=== PATIENT | female | born 1960 | race Caucasian/White ===

== ENCOUNTER 2020-04-24 16:37 | Emergency (ER) | payer MEDICAID, SELFPAY ==
[2020-04-24 17:15] VITALS: BP 140/82; PULSE 68; RESP 16; TEMP 35.9; O2SAT 98; BMI 33.6
--- NOTE | 2020-04-24 17:37 | ED.DCSUM_ITS ---
History of Present Illness Chief Complaint: Lower Extremity Injury Informant: Patient Onset: Today Context: Sudden Onset Timing: Continuous Current Severity: Moderate Maximum Severity: Severe Narrative: Patient is a 59-year-old female is otherwise healthy the presents to the emergency department with lower extremity injury. She states she was walking upstairs and slipped. She struck her anterior lorenzo against a concrete. She states that she had a large area of swelling. She was unable to bear weight because of the pain. She is not on anticoagulants. She denies any pain in the foot. Since it has happened, she states the swelling has gotten better but she is still markedly tender. The patient is otherwise been in her normal state of health. Prior similar symptoms: No Recent Illness/Hospitalization: No Past Medical History - Allergies and Home Meds Allergies/Adverse Reactions: Allergies amoxicillin Allergy (Verified 04/24/20 17:18) Nausea Prior records reviewed: Yes Past Medical History: - Surgical History: noncontributory Lives: With Family Smoking Status: Former smoker - Hypertension Review of Systems General: Denies: Chills, Fever, Sweats Eyes: Denies: Visual changes - bilaterally, Diplopia ENT: Denies: Rhinorrhea, Sore throat Cardiovascular: Denies: Chest pain, Palpitations Respiratory: Denies: Dyspnea, Cough, Dyspnea on exertion Gastrointestinal: Denies: Abdominal pain, Nausea, Vomiting, Diarrhea, Melena, Hematochezia Genitourinary: Denies: Dysuria, Hematuria, Frequency Musculoskeletal: Denies: Back pain, Extremity Pain Skin: Denies: Rash, Wounds Neurological: Denies: Headache, Weakness, Numbness Physical Exam Vital Signs/Narrative: Vital Signs Temp Pulse Resp BP Pulse Ox 04/24/20 17:15 96.7 F L 68 16 140/82 H 98 Inital Vital Signs reviewed: Yes General: Well nourished, Well developed, No Acute Distress Head: Normocephalic, Atraumatic Eyes: Perrl, EOMI ENT: Moist mucous membranes, No rhinorrhea Neck: Supple, Nontender Cardiovascular: Regular rate, Regular rhythm, No murmurs Respiratory: No distress, CTA bilaterally, Chest nontender Abdomen: Soft, Nontender, Nondistended, Normal bowel sounds Back: Nontender, Normal Inspection Extremities: No edema, Tenderness - Patient does have hematoma over the anterior lateral proximal lorenzo. Pulses in lower extremities are normal. The compartments are soft. There is no pain with motion in the foot and the anterior compartments. Skin: Normal color, No rash Neurological: Alert, Oriented x3, Cranial nerves II-XII grossly intact, Normal Strength, Normal Sensation Psychological: Normal affect, Normal Mood Diagnostic/Tx/Re-eval Clinical Impression(s) from Imaging Studies Tibia/Fibula X-Ray 04/24/20 17:48 IMPRESSION: Normal x-ray examination of the tibia and fibula. Electronically Signed: Oscar Walton MD at 18:08 EST , Service support , - Medical Decision Making The patient has no evidence of compartment syndrome. She does have a small hematoma. There is soft compartments and normal pulses. Plain films were obtained. These were reviewed by myself and the radiologist. There is no evidence of fracture. There are some small soft tissue swelling. Patient's leg was elevated and ice was applied. She is resting comfortably. She continues to have no evidence of compartment syndrome. At this point, she will be discharged home to continue ice and elevation. They were counseled on concerning symptoms. She is comfortable with this plan of care. Impression 1. Right tibial hematoma ED Disposition - Plan for ED Patient: Instructions: ED Contusion, Lower Extremity Prescriptions: Hydrocodone Bitart/Apap 5-325 [[place] 5MG-325MG] 1 tab PO Q6H PRN PRN 3 Days #10 tab PRN Reason: Pain Prescription Printed Additional Instructions: Keep your leg elevated. Keep continue to use ice.
[2020-04-24 17:41] VITALS: RESP 16
[2020-04-24] MEDS: HYDROcodone Bitartrate/Apap 5/325 Tablet PO (17:46)
--- NOTE | 2020-04-24 17:48 | RAD_ITS ---
STUDY: X-RAY - RIGHT TIBIA AND FIBULA REASON FOR EXAM: Female, 59 years old. FALL. RIGHT LOWER LEG PAIN. TECHNIQUE: 2 view(s) of the tibia and fibula were obtained. COMPARISON: None. FINDINGS: Normal visualized tibia. Normal visualized fibula. The soft tissue structures are unremarkable. RAD/Tibia & Fibula 2 Views IMPRESSION: Normal x-ray examination of the tibia and fibula. Electronically Signed: Oscar Walton MD at 18:08 EST , Service support ,
== END 2020-04-24 18:40 | disposition home or self-care (01) ==
LOC: ED 18:22
PROVIDERS: Emergency Provider Emergency Medicine
DX: S80.11XA Contusion of right lower leg, initial encounter (principal); W01.198A Fall on same level from slipping, tripping and stumbling with subsequent striking against other object, initial encounter; Y93.01 Activity, walking, marching and hiking; Y92.009 Unspecified place in unspecified non-institutional (private) residence as the place of occurrence of the external cause; Y99.9 Unspecified external cause status; Z87.891 Personal history of nicotine dependence; Z88.0 Allergy status to penicillin
CPT/HCPCS: 73590; 99284